=== PATIENT | female | born 2000 | race Caucasian/White ===

== ENCOUNTER 2021-11-06 20:56 | Emergency (ER) | payer MEDICAID ==
[~2021-11-06] VITALS: Ht 162.6 cm; Wt 72.6 kg
[2021-11-06 20:56] VITALS: BP 144/72
== END 2021-11-07 06:07 | disposition left against medical advice (07) ==
LOC: ER 20:56
DX: R51.9 Headache, unspecified (principal); Z53.21 Procedure and treatment not carried out due to patient leaving prior to being seen by health care provider